=== PATIENT | male | born 1975 | race Caucasian/White ===

== ENCOUNTER 2023-04-30 12:15 | Emergency (ER) | payer MEDICAID ==
[2023-04-30] MEDS ORDERED: Sodium Chloride 0.9% 10 ML Syringe FLUSH PRN (12:26)
[2023-04-30 12:43] LABS: HEMATOCRIT 45.2 % (42.0-52.0); HEMOGLOBIN 15.2 g/dL (14.0-18.0); MEAN CORPUSCULAR HEMOGLOBIN 33.7 pg (27.0-32.0); MEAN CORPUSCULAR HGB CONC 33.6 g/dL (32.0-36.0); MEAN CORPUSCULAR VOLUME 100.2 fL (83.0-97.0); PLATELET COUNT,PLT 357 10^3/uL (150-400); RED BLOOD CELL COUNT 4.51 x10^6/uL (4.50-6.00)
[2023-04-30] MEDS ORDERED: Sodium Chloride 0.9% 1,000 ML IV SCH (12:45)
[2023-04-30] MEDS ORDERED: Sodium Chloride 0.9% 1,000 ML IV ONE ×2 (12:55→15:18)
[2023-04-30] MEDS ORDERED: Sodium Bicarbonate 8.4% 50 MEQ/50 ML Syringe IVPUSH ONE ×2 (12:56→13:54)
[2023-04-30] MEDS: Sodium Chloride 0.9% 1,000 ML IV ONE ×2 (12:56→12:57)
[2023-04-30 13:00] LABS: ALANINE AMINOTRANSFERASE,ALT 56 U/L (12-78); ALBUMIN 3.1 g/dL (3.4-5.0); ALKALINE PHOSPHATASE 120 U/L (46-116); ASPARTATE AMNIOTRANSFERASE,AST 25 U/L (15-37); BILIRUBIN TOTAL 0.4 mg/dL (0.0-1.0); BLOOD UREA NITROGEN,BUN 35 mg/dL (7-18); CALCIUM 10.1 mg/dL (8.4-10.1); CHLORIDE,CL 89 mEq/L (98-106); CREATININE 2.3 mg/dL (0.7-1.3); EST CRCL DRUG DOSING (CG) 43.58 mL/min; POTASSIUM,K 5.2 mEq/L (3.5-5.0); PROTEIN TOTAL,TP 6.5 g/dL (6.4-8.2)
[2023-04-30 13:04] LABS: WHITE BLOOD CELL COUNT,WBC 28.5 10^3/uL (4.0-11.0)
[2023-04-30 13:08] LABS: LACTIC ACID 4.8 mmol/L (0.4-2.0); LYMPHOCYTES ABSOLUTE MAN 4.85 10^3/uL (1.00-4.80); LYMPHOCYTES PERCENT MAN 17 % (21-55); MONOCYTES ABSOLUTE MAN 2.85 10^3/uL (0.00-0.80); MONOCYTES PERCENT MAN 10 % (2-12); NEUTROPHILS ABSOLUTE MAN 20.81 10^3/uL (1.80-7.00); SEG NEUTROPHILS PERCENT MAN 73 % (35-85)
[2023-04-30 13:14] LABS: MAGNESIUM 2.7 mg/dL (1.8-2.4)
[2023-04-30 13:16] LABS: CARBON DIOXIDE,CO2 5 mmol/L (21-32); CREATINE KINASE,CK 280 U/L (35-232); ESTIMATED GFR 34 mL/min (>=60); ETHANOL BLOOD MEDICAL < 3 mg/dL (0-3); GLUCOSE RANDOM 875 mg/dL (75-99); SODIUM,NA 124 mEq/L (136-145)
[2023-04-30] MEDS ORDERED: Insulin Regular, Human 100 Units/ML 3 ML Vial IV ONE (13:19)
[2023-04-30] MEDS ORDERED: 50% Dextrose in Water 50 ML Syringe IVPUSH PRN (13:19)
[2023-04-30] MEDS ORDERED: Glucagon,Human Recombinant 1 MG Vial IM PRN (13:19)
[2023-04-30 13:27] LABS: CORONAVIRUS COVID-19 NAA NEGATIVE (NEGATIVE); INFLUENZA A NAA NEGATIVE (NEGATIVE); INFLUENZA B NAA NEGATIVE (NEGATIVE)
[2023-04-30] MEDS ORDERED: Insulin Regular in 0.9 % NACL 100 ML IV SCH (13:30)
[2023-04-30 14:16] LABS: APPEARANCE,URINE CLEAR (CLEAR); BILIRUBIN,URINE NEGATIVE (NEGATIVE); COLOR,URINE YELLOW (YELLOW); GLUCOSE,URINE 500 mg/dL (NEGATIVE); KETONES,URINE >=160 mg/dL (NEGATIVE); LEUKOCYTE ESTERASE,URINE NEGATIVE (NEGATIVE); NITRITE,URINE NEGATIVE (NEGATIVE); OCCULT BLOOD,URINE MODERATE (NEGATIVE); PH,URINE 5.5 (4.5-8.0); PROTEIN,URINE 100 mg/dL (NEGATIVE); UROBILINOGEN,URINE 0.2 EU/dL (0.2-1.0)
[2023-04-30 14:25] LABS: BACTERIA,URINE NOT SEEN /HPF (NOT SEEN); EPITHELIAL CELLS,URINE OCCASIONAL /HPF (NOT SEEN); MUCUS,URINE OCCASIONAL /HPF (NOT SEEN); RBC,URINE 0-5 /HPF (0-5); WBC,URINE 0-5 /HPF (0-5)
[2023-04-30] MEDS ORDERED: Cefepime 2 GM in Sodium Chloride 0.9% 100 ML IV ONE (15:17)
== END 2023-04-30 15:41 ==
LOC: CC.ED 12:15
DX: E11.10 Type 2 diabetes mellitus with ketoacidosis without coma (principal); Z20.822 Contact with and (suspected) exposure to COVID-19
CPT/HCPCS: 0240U; 36415; 70450; 71045; 80053; 80307; 81001; 82550; 82800; 83605; 83735; 84484; 85025; 87040; 93005; 93010; 96374; 96375; 96376; 99284; 99285-25; J0692; J1815-GY; J3490; J7030

== ENCOUNTER 2023-11-06 15:18 | Emergency (ER) | payer MEDICAID ==
[2023-11-06] MEDS ORDERED: Glucagon,Human Recombinant 1 MG Vial IM PRN (15:28)
[2023-11-06] MEDS ORDERED: 50% Dextrose in Water 50 ML Syringe IVPUSH PRN (15:28)
[2023-11-06] MEDS: Sodium Chloride 0.9% 1,000 ML IV ONE ×2 (15:33→15:40)
[2023-11-06] MEDS: Insulin Regular, Human 100 Units/ML 3 ML Vial IV ONE (15:37)
[2023-11-06] MEDS: Sodium Bicarbonate 8.4% 50 MEQ/50 ML Syringe IVPUSH ONE (15:41)
[2023-11-06] MEDS: Insulin Regular in 0.9 % NACL 100 ML IV SCH (15:52)
[2023-11-06 15:53] LABS: O2 DELIVERY DEVICE ROOM AIR
[2023-11-06 15:56] LABS: BASE EXCESS ARTERIAL -18.2 (-2.0-3.0); BICARBONATE,ARTERIAL 8.4 mm/L (22.0-26.0); O2 SATURATION ARTERIAL 91 % (95-98); PCO2 ARTERIAL 18 mm/Hg0 (35-45); PH,ARTERIAL 7.29 (7.35-7.45); PO2 ARTERIAL 64 mm/Hg (80-100)
[2023-11-06] MEDS: Calcium Gluconate 1 GM in Sodium Chloride 0.9% 100 ML IV STA (16:07)
[2023-11-06] MEDS: Ondansetron 4 MG/2 ML SDV IVPUSH PRN (16:08)
[2023-11-06] MEDS: Ondansetron 4 MG/2 ML SDV ONE (16:10)
[2023-11-06] MEDS: Piperacillin/Tazobactam 4.5 GM in Sodium Chloride 0.9% 100 ML IV ONE (16:40)
[2023-11-06] MEDS: VANCOmycin 1.5 GM/300 ML 1.5 GM in Premix Bag 1 BAG IV ONE (17:00)
[2023-11-06] MEDS: Lactated Ringers 1,000 ML IV SCH (17:10)
[2023-11-06 17:53] LABS: CALCIUM 10.5 mg/dL (8.4-10.1); EST CRCL DRUG DOSING (CG) 37.12 mL/min
[2023-11-06 17:54] LABS: CREATININE 2.7 mg/dL (0.7-1.3)
[2023-11-06] MEDS: Potassium Chloride Riders 20 MEQ in Premix Bag 1 BAG IV ONE (18:48)
[2023-11-06] MEDS: Sodium Chloride 0.9% 500 ML IV SCH (18:49)
[2023-11-06] MEDS: Sodium Bicarbonate 50 MEQ in Sodium Chloride 0.9% 1,000 ML IV ONE (19:22)
[2023-11-06 20:07] LABS: ALBUMIN 3.4 g/dL (3.4-5.0); BILIRUBIN TOTAL 1.3 mg/dL (0.0-1.0); CALCIUM 10.8 mg/dL (8.4-10.1); CREATININE 2.1 mg/dL (0.7-1.3); EST CRCL DRUG DOSING (CG) 47.73 mL/min; POTASSIUM,K 5.4 mEq/L (3.5-5.0); PROTEIN TOTAL,TP 6.9 g/dL (6.4-8.2)
== END 2023-11-06 20:05 ==
LOC: CC.ED 15:18
DX: E11.10 Type 2 diabetes mellitus with ketoacidosis without coma (principal); R79.89 Other specified abnormal findings of blood chemistry; N17.9 Acute kidney failure, unspecified; E87.5 Hyperkalemia; E87.1 Hypo-osmolality and hyponatremia; D72.9 Disorder of white blood cells, unspecified; Z79.4 Long term (current) use of insulin; Z79.899 Other long term (current) drug therapy
CPT/HCPCS: 36415; 36600; 71045; 80048; 80053; 82803; 83605; 93010; 96361; 96365; 96367; 96368; 96375; 99284; 99285-25; J0612; J1815-GY; J2405; J2543; J3372; J3480; J3490; J7030; J7040; J7120

== ENCOUNTER 2024-09-22 04:01 | Inpatient (IN) | payer MEDICAID ==
[2024-09-22] MEDS: Sodium Chloride 0.9% 1,000 ML IV ONE ×2 (04:41→06:30)
[2024-09-22 04:56] LABS: BASOPHILS ABSOLUTE AUTO 0.04 10^3/uL (0.00-0.50); BASOPHILS PERCENT AUTO 0.4 % (0-1); EOSINOPHILS ABSOLUTE AUTO 0.04 10^3/uL (0.00-1.50); EOSINOPHILS PERCENT AUTO 0.4 % (0-6); HEMATOCRIT 37.5 % (42.0-52.0); HEMOGLOBIN 12.9 g/dL (14.0-18.0); IMMATURE GRAN ABSOLUTE AUTO 0.04 10^3/uL (0.00-0.49); IMMATURE GRAN PERCENT AUTO 0.4 % (0.0-4.9); LYMPHOCYTES ABSOLUTE AUTO 0.68 10^3/uL (0.60-5.00); LYMPHOCYTES PERCENT AUTO 6.1 % (24-44); MEAN CORPUSCULAR HEMOGLOBIN 30.2 pg (27.0-32.0); MEAN CORPUSCULAR HGB CONC 34.4 g/dL (32.0-36.0); MEAN CORPUSCULAR VOLUME 87.8 fL (83.0-97.0); MONOCYTES ABSOLUTE AUTO 0.97 10^3/uL (0.00-1.50); MONOCYTES PERCENT AUTO 8.7 % (0-10); NEUTROPHILS ABSOLUTE AUTO 9.36 x10^3/uL (1.80-8.00); PLATELET COUNT,PLT 414 10^3/uL (150-400); RED BLOOD CELL COUNT 4.27 x10^6/uL (4.50-6.00); WHITE BLOOD CELL COUNT,WBC 11.1 10^3/uL (4.0-11.0)
[2024-09-22 05:04] LABS: ALBUMIN 3.3 g/dL (3.4-5.0); BILIRUBIN TOTAL 0.6 mg/dL (0.0-1.0); C-REACTIVE PROTEIN 3.39 mg/dL (<=0.50); CALCIUM 8.8 mg/dL (8.4-10.1); CREATININE 0.8 mg/dL (0.7-1.3); EST CRCL DRUG DOSING (CG) 115.92 mL/min; MAGNESIUM 1.8 mg/dL (1.8-2.4); POTASSIUM,K 3.6 mEq/L (3.5-5.0); PROTEIN TOTAL,TP 6.9 g/dL (6.4-8.2)
[2024-09-22] MEDS: Ondansetron 4 MG/2 ML SDV IVPUSH STA (05:17)
[2024-09-22] MEDS: fentaNYL 50 MCG/ML SDV IVPUSH ONE ×2 (05:19→09:00)
[2024-09-22] MEDS: fentaNYL 100 MCG/2 ML SDV IVPUSH ONE (05:30)
[2024-09-22] MEDS: Iopamidol 755 Mg/ML 100 ML Bottle IVPUSH ONE (05:50)
[2024-09-22 07:47] LABS: APPEARANCE,URINE CLEAR (CLEAR); BILIRUBIN,URINE NEGATIVE (NEGATIVE); COLOR,URINE YELLOW (YELLOW); GLUCOSE,URINE 500 mg/dL (NEGATIVE); KETONES,URINE 80 mg/dL (NEGATIVE); LEUKOCYTE ESTERASE,URINE NEGATIVE (NEGATIVE); NITRITE,URINE NEGATIVE (NEGATIVE); OCCULT BLOOD,URINE NEGATIVE (NEGATIVE); PH,URINE 5.5 (4.5-8.0); PROTEIN,URINE TRACE mg/dL (NEGATIVE); UROBILINOGEN,URINE 0.2 EU/dL (0.2-1.0)
[2024-09-22 08:01] LABS: BACTERIA,URINE NOT SEEN /HPF (NOT SEEN); RBC,URINE NOT SEEN /HPF (0-5); SQUAMOUS EPITHELIAL CELLS,UR FEW /HPF (NOT SEEN)
[2024-09-22] MEDS: Benzocaine 20% Topical Spray UD MUCMEM ONE (09:00)
[2024-09-22] MEDS: diazePAM 10 MG/2 ML Syringe IVPUSH ONE (09:01)
[2024-09-22] MEDS ORDERED: Promethazine 12.5 MG Supp RECTAL PRN (09:46)
[2024-09-22] MEDS ORDERED: Glucagon,Human Recombinant 1 MG Vial IM PRN (09:46)
[2024-09-22] MEDS ORDERED: Docusate Sodium 100 MG Cap PO PRN (09:46)
[2024-09-22] MEDS ORDERED: Acetaminophen 325 MG Tab PO PRN (09:46)
[2024-09-22] MEDS ORDERED: Polyethylene Glycol 3350 Powder 17 GM Packet PO PRN (09:46)
[2024-09-22] MEDS ORDERED: 50% Dextrose in Water 50 ML Syringe IVPUSH PRN (09:46)
[2024-09-22] MEDS: Lactated Ringers 1,000 ML IV SCH (10:12)
[2024-09-22] MEDS: Insulin Regular, Human 100 Units/ML 10 ML Vial SUBCUT SCH (11:37)
[2024-09-22] MEDS: fentaNYL 50 MCG/ML SDV IVPUSH PRN (19:14)
[2024-09-22] MEDS: Ondansetron 4 MG/2 ML SDV IV PRN (21:57)
[2024-09-23 07:57] LABS: BASOPHILS ABSOLUTE AUTO 0.02 10^3/uL (0.00-0.50); BASOPHILS PERCENT AUTO 0.3 % (0-1); EOSINOPHILS ABSOLUTE AUTO 0.02 10^3/uL (0.00-1.50); EOSINOPHILS PERCENT AUTO 0.3 % (0-6); HEMATOCRIT 39.5 % (42.0-52.0); HEMOGLOBIN 13.3 g/dL (14.0-18.0); IMMATURE GRAN ABSOLUTE AUTO 0.03 10^3/uL (0.00-0.49); IMMATURE GRAN PERCENT AUTO 0.4 % (0.0-4.9); LYMPHOCYTES ABSOLUTE AUTO 1.15 10^3/uL (0.60-5.00); LYMPHOCYTES PERCENT AUTO 16.1 % (24-44); MEAN CORPUSCULAR HEMOGLOBIN 30.2 pg (27.0-32.0); MEAN CORPUSCULAR HGB CONC 33.7 g/dL (32.0-36.0); MEAN CORPUSCULAR VOLUME 89.8 fL (83.0-97.0); MONOCYTES ABSOLUTE AUTO 1.23 10^3/uL (0.00-1.50); MONOCYTES PERCENT AUTO 17.2 % (0-10); NEUTROPHILS PERCENT AUTO 65.7 % (41-71); PLATELET COUNT,PLT 452 10^3/uL (150-400); WHITE BLOOD CELL COUNT,WBC 7.2 10^3/uL (4.0-11.0)
[2024-09-23] MEDS: Rosuvastatin 10 MG Tab PO SCH (08:07)
[2024-09-23] MEDS: Pantoprazole 40 MG Vial IVPUSH SCH (08:07)
[2024-09-23 08:32] LABS: ALBUMIN 2.5 g/dL (3.4-5.0); BILIRUBIN TOTAL 0.7 mg/dL (0.0-1.0); CALCIUM 8.6 mg/dL (8.4-10.1); CREATININE 0.8 mg/dL (0.7-1.3); EST CRCL DRUG DOSING (CG) 116.14 mL/min; MAGNESIUM 1.8 mg/dL (1.8-2.4); POTASSIUM,K 4.1 mEq/L (3.5-5.0); PROTEIN TOTAL,TP 5.8 g/dL (6.4-8.2)
[2024-09-24 07:50] LABS: BASOPHILS ABSOLUTE AUTO 0.05 10^3/uL (0.00-0.50); BASOPHILS PERCENT AUTO 0.7 % (0-1); EOSINOPHILS ABSOLUTE AUTO 0.01 10^3/uL (0.00-1.50); EOSINOPHILS PERCENT AUTO 0.1 % (0-6); HEMATOCRIT 41.3 % (42.0-52.0); HEMOGLOBIN 13.4 g/dL (14.0-18.0); IMMATURE GRAN ABSOLUTE AUTO 0.03 10^3/uL (0.00-0.49); IMMATURE GRAN PERCENT AUTO 0.4 % (0.0-4.9); MEAN CORPUSCULAR HEMOGLOBIN 30.2 pg (27.0-32.0); MEAN CORPUSCULAR HGB CONC 32.4 g/dL (32.0-36.0); MONOCYTES PERCENT AUTO 15.6 % (0-10); NEUTROPHILS ABSOLUTE AUTO 4.65 x10^3/uL (1.80-8.00); NEUTROPHILS PERCENT AUTO 66.2 % (41-71); PLATELET COUNT,PLT 473 10^3/uL (150-400); RED BLOOD CELL COUNT 4.44 x10^6/uL (4.50-6.00)
[2024-09-24 07:53] LABS: ALBUMIN 2.7 g/dL (3.4-5.0); BILIRUBIN TOTAL 0.5 mg/dL (0.0-1.0); C-REACTIVE PROTEIN 7.26 mg/dL (<=0.50); CALCIUM 8.7 mg/dL (8.4-10.1); CREATININE 0.9 mg/dL (0.7-1.3); EST CRCL DRUG DOSING (CG) 103.23 mL/min; PROTEIN TOTAL,TP 5.8 g/dL (6.4-8.2)
[2024-09-24 08:09] LABS: POTASSIUM,K 3.6 mEq/L (3.5-5.0)
[2024-09-24] MEDS: Bisacodyl 10 MG Supp RECTAL ONE (12:45)
[2024-09-25 07:41] LABS: BASOPHILS ABSOLUTE AUTO 0.02 10^3/uL (0.00-0.50); BASOPHILS PERCENT AUTO 0.4 % (0-1); EOSINOPHILS ABSOLUTE AUTO 0.22 10^3/uL (0.00-1.50); EOSINOPHILS PERCENT AUTO 3.9 % (0-6); HEMATOCRIT 32.7 % (42.0-52.0); HEMOGLOBIN 11.2 g/dL (14.0-18.0); IMMATURE GRAN ABSOLUTE AUTO 0.07 10^3/uL (0.00-0.49); IMMATURE GRAN PERCENT AUTO 1.3 % (0.0-4.9); LYMPHOCYTES ABSOLUTE AUTO 1.67 10^3/uL (0.60-5.00); MEAN CORPUSCULAR HEMOGLOBIN 30.4 pg (27.0-32.0); MEAN CORPUSCULAR HGB CONC 34.3 g/dL (32.0-36.0); MEAN CORPUSCULAR VOLUME 88.9 fL (83.0-97.0); MONOCYTES ABSOLUTE AUTO 0.83 10^3/uL (0.00-1.50); MONOCYTES PERCENT AUTO 14.9 % (0-10); NEUTROPHILS ABSOLUTE AUTO 2.76 x10^3/uL (1.80-8.00); NEUTROPHILS PERCENT AUTO 49.5 % (41-71); PLATELET COUNT,PLT 355 10^3/uL (150-400); RED BLOOD CELL COUNT 3.68 x10^6/uL (4.50-6.00); WHITE BLOOD CELL COUNT,WBC 5.6 10^3/uL (4.0-11.0)
[2024-09-25 07:58] LABS: BILIRUBIN TOTAL 0.4 mg/dL (0.0-1.0); C-REACTIVE PROTEIN 5.24 mg/dL (<=0.50); CALCIUM 8.1 mg/dL (8.4-10.1); CREATININE 0.7 mg/dL (0.7-1.3); EST CRCL DRUG DOSING (CG) 132.73 mL/min
== END 2024-09-25 13:45 | disposition home or self-care (01) | DRG 390 ==
LOC: CC.ED 04:01 → CC.MS 09:06 → UNDOADMIN 09:13
PROVIDERS: ADMIT Nurse Practitioner; ATTEND Nurse Practitioner
PROC: 0D9670Z Drainage of Stomach with Drainage Device, Via Natural or Artificial Opening (ICD-10-PCS; principal; 2024-09-22)
DX: K56.609 Unspecified intestinal obstruction, unspecified as to partial versus complete obstruction (principal); E11.9 Type 2 diabetes mellitus without complications; K56.7 Ileus, unspecified; R00.0 Tachycardia, unspecified; Z79.4 Long term (current) use of insulin; Z79.899 Other long term (current) drug therapy
CPT/HCPCS: 36415; 43752; 71045; 74019; 74177; 80053; 81001; 82800; 82947; 83605; 83690; 83735; 85025; 86140; 87086; 96361; 96374; 96375; 96376; 99223; 99232; 99233; 99239; 99285-25; A9270-GY; J2405; J2470; J3010; J3360; J7030; J7120; Q9967

== ENCOUNTER 2025-01-28 22:07 | Emergency (ER) | payer MEDICAID, OTHER ==
[2025-01-28] MEDS: Diphtheria,Pertussis(Acell),Tetanus Vaccine 0.5 ML Syringe IM ONE (22:30)
== END 2025-01-28 22:45 | disposition home or self-care (01) ==
LOC: CC.ED 22:07
DX: S60.456A Superficial foreign body of right little finger, initial encounter (principal); E11.9 Type 2 diabetes mellitus without complications; Z79.4 Long term (current) use of insulin; Z79.899 Other long term (current) drug therapy; Z23 Encounter for immunization; W45.3XXA Fishing hook entering through skin, initial encounter; Y93.89 Activity, other specified
CPT/HCPCS: 90471; 90715; 99282; 99283-25; J2003